=== PATIENT | male | born 1960 | race African-American/Black ===

== ENCOUNTER 2019-09-26 11:57 | Emergency (ER) | payer MEDICAID ==
[~2019-09-26] VITALS: Ht 175.3 cm; Wt 84.0 kg
[2019-09-26 12:10] VITALS: BP 148/96
== END 2019-09-26 12:59 | disposition home or self-care (01) ==
LOC: ER 11:57
DX: Z48.817 Encounter for surgical aftercare following surgery on the skin and subcutaneous tissue (principal)
CPT/HCPCS: 99281; 99283